=== PATIENT | female | born 2000 | race Caucasian/White ===

== ENCOUNTER 2022-05-21 23:15 | Emergency (ER) | payer BC, OTHER ==
[~2022-05-21] VITALS: Ht 162.6 cm; Wt 74.4 kg
[2022-05-22] MEDS ORDERED: IBUPROFEN 400 MG TAB PO ONE (01:30)
== END 2022-05-22 01:55 | disposition home or self-care (01) ==
LOC: ER 23:18
DX: S93.492A Sprain of other ligament of left ankle, initial encounter (principal); Y93.6A Activity, physical games generally associated with school recess, summer camp and children; Y92.89 Other specified places as the place of occurrence of the external cause
CPT/HCPCS: 99284